=== PATIENT | male | born 1980 | race Caucasian/White ===

== ENCOUNTER 2020-09-14 01:58 | Emergency (ER) | payer SELFPAY ==
[2020-09-14 02:21] LABS: BASOPHIL 0.2 % (0-2); EOSINOPHIL 0.6 % (0-5); HCT 46.9 % (42.0-52.0); HGB 15.1 g/dl (13.2-18.0); LYMPHOCYTE 17.7 % (15-48); MCH 28.6 pg (25.0-31.0); MCHC 32.2 g/dL (32.0-36.0); MCV 88.8 fL (78.0-100.0); MONOCYTE 5.1 % (0-12); MPV 10.2 fL (6.0-9.5); NEUTROPHIL 76.1 % (41-80); NRBC 0; PLT 192 K/uL (150-400); RBC 5.28 M/uL (4.70-6.00); RDW 12.1 % (11.5-14.0); WBC 12.6 K/uL (4.0-10.5)
[2020-09-14 02:37] LABS: ALBUMIN 4.3 g/dL (3.4-5.0); BILIRUBIN - TOTAL 0.4 mg/dL (0.2-1.0); BUN/CREAT RATIO (CALC) 16.8 RATIO; CREATININE 0.95 mg/dL (0.67-1.17); GLOBULIN (CALCULATION) 3.2 g/dL; POTASSIUM 3.7 mmol/L (3.5-5.1); TOTAL PROTEIN 7.5 g/dL (6.4-8.2)
[2020-09-14 03:32] LABS: BILIRUBIN NEGATIVE (NEGATIVE); BLOOD 3+ Ery/uL (NEGATIVE); CLARITY CLEAR (CLEAR); COLOR YELLOW (YELLOW); GLUCOSE (U) NORMAL (NORMAL); LEUKOCYTES NEGATIVE Leu/uL (NEGATIVE); NITRITE NEGATIVE (NEGATIVE); PROTEIN NEGATIVE (NEGATIVE); UROBILINOGEN 0.2 mg/dL (0.2-1.0)
[2020-09-14] MEDS ORDERED: ZOFRAN4 M1 PO (04:32)
[2020-09-14] MEDS ORDERED: FLOMAX 0.4 MG0.4 MG PO (04:32)
[2020-09-14] MEDS ORDERED: KETOROLAC TROME10 MG PO (04:32)
[2020-09-14] MEDS ORDERED: PERCOCET 7.5/321 TAB PO (07:50)
== END 2020-09-14 06:19 | disposition home or self-care (01) ==
LOC: FER 01:58
PROVIDERS: Emergency Medicine
DX: N13.2 Hydronephrosis with renal and ureteral calculous obstruction (principal)
CPT/HCPCS: 36415; 80053; 81001; 83690; 85025; J1170; J1885; J2405; J7030; Q9967